=== PATIENT | male | born 2000 | race Caucasian/White ===

== ENCOUNTER 2022-09-24 16:19 | Emergency (ER) | payer OTHER ==
[2022-09-24] MEDS ORDERED: Sodium Chloride 0.9% 1,000 ML IV STA (17:49)
[2022-09-24] MEDS ORDERED: Ondansetron 4 MG/2 ML SDV IVPUSH ONE (17:54)
== END 2022-09-24 19:40 | disposition home or self-care (01) ==
LOC: JD.ED 16:19
DX: F10.10 Alcohol abuse, uncomplicated (principal); Y90.1 Blood alcohol level of 20-39 mg/100 ml
CPT/HCPCS: 36415; 80053; 80143; 80179; 80306; 80307; 84443; 85007; 85027; 93005; 96361; 96374; 99284; J2405; J7030; 93010; 99285

== ENCOUNTER 2023-07-16 15:30 | Emergency (ER) | payer OTHER ==
[2023-07-16] MEDS ORDERED: Propofol 200 MG/20 ML SDV IVPUSH ONE (16:18)
== END 2023-07-16 17:50 | disposition home or self-care (01) ==
LOC: JD.ED 15:30
DX: S43.025A Posterior dislocation of left humerus, initial encounter (principal); X50.1XXA Overexertion from prolonged static or awkward postures, initial encounter
CPT/HCPCS: 23650; 73030; 99283; J2704; 99152

== ENCOUNTER 2023-10-08 19:34 | Emergency (ER) | payer OTHER | END 2023-10-08 20:11 | disposition home or self-care (01) | LOC: JD.ED 19:34 | DX: F10.220 Alcohol dependence with intoxication, uncomplicated (principal) | CPT/HCPCS: 99283; 99284 ==

== ENCOUNTER 2024-01-06 16:20 | Emergency (ER) | payer OTHER ==
[2024-01-06 17:22] LABS: BASOPHILS ABSOLUTE AUTO 0.1 K/mm3 (0.0-0.2); BASOPHILS PERCENT AUTO 0.8 % (0.0-1.0); EOSINOPHILS ABSOLUTE AUTO 0.2 K/mm3 (0.0-0.4); EOSINOPHILS PERCENT AUTO 2.1 % (0.0-6.0); HEMATOCRIT 39.7 % (42.0-52.0); HEMOGLOBIN 13.4 gm/dl (14.0-18.0); IMMATURE GRAN ABSOLUTE AUTO 0.04 K/mm3 (0.00-0.05); IMMATURE GRAN PERCENT AUTO 0.5 % (0.0-0.4); LYMPHOCYTES PERCENT AUTO 25.9 % (24.0-44.0); MEAN CORPUSCULAR HEMOGLOBIN 30.4 pg (28.0-32.0); MEAN CORPUSCULAR HGB CONC 33.8 g/dl (32.0-36.0); MEAN PLATELET VOLUME 11.6 fl (9.4-12.4); MONOCYTES ABSOLUTE AUTO 0.9 K/mm3 (0.0-0.8); MONOCYTES PERCENT AUTO 11.4 % (0.0-8.0); NEUTROPHILS ABSOLUTE AUTO 4.5 K/mm3 (1.8-7.7); NEUTROPHILS PERCENT AUTO 59.3 % (41.0-71.0); PLATELET COUNT,PLT 118 K/mm3 (150-400); RED BLOOD CELL COUNT 4.41 M/mm3 (4.52-5.90); WHITE BLOOD CELL COUNT,WBC 7.62 K/mm3 (3.9-11.3)
[2024-01-06] MEDS: Thiamine 100 MG Tab PO ONE (17:53)
[2024-01-06] MEDS: Folic Acid 1 MG Tab PO ONE (17:53)
[2024-01-06] MEDS: LORazepam 1 MG Tab PO ONE (17:53)
[2024-01-06 17:56] LABS: A/G RATIO 1.1 (1-2); ALBUMIN 4.1 g/dl (3.4-5.0); ANION GAP 16.3 (5-15); BILIRUBIN TOTAL 0.6 mg/dL (0.2-1.0); BUN/CREATININE RATIO 15.5 (14-18); CALCIUM 9.7 mg/dL (8.5-10.1); CREATININE 1.1 mg/dL (0.7-1.3); EST CRCL DRUG DOSING (CG) 112.19 mL/min; POTASSIUM,K 3.3 mEq/L (3.5-5.1); PROTEIN TOTAL,TP 7.7 g/dl (6.4-8.2); TSH 1.882 uIU/mL (0.358-3.74)
[2024-01-06 18:27] LABS: AMPHETAMINES SCREEN, URINE NEGATIVE (CUTOFF=500); BARBITURATE SCREEN,URINE NEGATIVE (CUTOFF=200); BENZODIAZEPINES SCREEN,URINE NEGATIVE (CUTOFF=150); BUPRENORPHINE SCREEN,URINE NEGATIVE (CUTOFF=10); METHADONE SCREEN, URINE NEGATIVE (CUT0FF=200); METHAMPHETAMINES SCREEN, URINE NEGATIVE (CUTOFF=500); OXYCODONE SCREEN,URINE NEGATIVE (CUT0FF=100); THC SCREEN,URINE 20 NG/ML NEGATIVE (CUTOFF=50)
[2024-01-06] MEDS: Potassium Chloride 20 MEQ Tab.ER PO ONE (18:28)
== END 2024-01-06 18:56 | disposition home or self-care (01) ==
LOC: JD.ED 16:20
DX: F10.232 Alcohol dependence with withdrawal with perceptual disturbance (principal); R74.01 Elevation of levels of liver transaminase levels; Z79.899 Other long term (current) drug therapy; Y90.9 Presence of alcohol in blood, level not specified
CPT/HCPCS: 36415; 80053; 80143; 80179; 80306; 80307; 84443; 85025; 99284; A9270

== ENCOUNTER 2024-01-07 00:23 | Emergency (ER) | payer OTHER ==
[2024-01-07 00:58] LABS: APPEARANCE,URINE CLEAR (Clear); BILIRUBIN,URINE NEGATIVE (Negative); COLOR,URINE YELLOW (Yellow); GLUCOSE,URINE NEGATIVE (Negative); KETONES,URINE NEGATIVE (Negative); LEUKOCYTE ESTERASE,URINE NEGATIVE (Negative); NITRITE,URINE NEGATIVE (Negative); OCCULT BLOOD,URINE NEGATIVE (Negative); PH,URINE 8.5 (5.0-8.0); PROTEIN,URINE TRACE (Negative); UROBILINOGEN,URINE 0.2 (0.2-1.0)
[2024-01-07 01:04] LABS: BACTERIA,URINE FEW /hpf (FEW); EPITHELIAL CELLS,URINE NOT SEEN /hpf (0-5); MUCUS,URINE NOT SEEN /hpf (FEW); RBC,URINE NOT SEEN /hpf (0-5); WBC,URINE 0-5 /hpf (0-5)
[2024-01-07 01:05] LABS: AMORPHOUS SEDIMENT,URINE MODERATE /hpf (NOT SEEN)
[2024-01-07 01:07] LABS: BASOPHILS ABSOLUTE AUTO 0.1 K/mm3 (0.0-0.2); BASOPHILS PERCENT AUTO 0.7 % (0.0-1.0); EOSINOPHILS ABSOLUTE AUTO 0.2 K/mm3 (0.0-0.4); EOSINOPHILS PERCENT AUTO 2.8 % (0.0-6.0); HEMATOCRIT 40.2 % (42.0-52.0); HEMOGLOBIN 13.7 gm/dl (14.0-18.0); IMMATURE GRAN ABSOLUTE AUTO 0.02 K/mm3 (0.00-0.05); IMMATURE GRAN PERCENT AUTO 0.3 % (0.0-0.4); LYMPHOCYTES ABSOLUTE AUTO 1.7 K/mm3 (1.0-4.8); LYMPHOCYTES PERCENT AUTO 24.3 % (24.0-44.0); MEAN CORPUSCULAR HEMOGLOBIN 30.9 pg (28.0-32.0); MEAN CORPUSCULAR HGB CONC 34.1 g/dl (32.0-36.0); MEAN CORPUSCULAR VOLUME 90.7 fl (83.0-99.0); MEAN PLATELET VOLUME 11.4 fl (9.4-12.4); MONOCYTES ABSOLUTE AUTO 0.8 K/mm3 (0.0-0.8); MONOCYTES PERCENT AUTO 11.6 % (0.0-8.0); NEUTROPHILS ABSOLUTE AUTO 4.1 K/mm3 (1.8-7.7); NEUTROPHILS PERCENT AUTO 60.3 % (41.0-71.0); PLATELET COUNT,PLT 119 K/mm3 (150-400); RED BLOOD CELL COUNT 4.43 M/mm3 (4.52-5.90)
[2024-01-07] MEDS: Sodium Chloride 0.9% 10 ML Syringe FLUSH PRN (01:10)
[2024-01-07 01:17] LABS: BENZODIAZEPINES SCREEN,URINE PRESUMPTIVE POSITIVE (CUTOFF=150)
[2024-01-07 01:18] LABS: AMPHETAMINES SCREEN, URINE NEGATIVE (CUTOFF=500); BARBITURATE SCREEN,URINE NEGATIVE (CUTOFF=200); BUPRENORPHINE SCREEN,URINE NEGATIVE (CUTOFF=10); METHADONE SCREEN, URINE NEGATIVE (CUT0FF=200); METHAMPHETAMINES SCREEN, URINE NEGATIVE (CUTOFF=500); OXYCODONE SCREEN,URINE NEGATIVE (CUT0FF=100); THC SCREEN,URINE 20 NG/ML NEGATIVE (CUTOFF=50)
[2024-01-07 01:41] LABS: A/G RATIO 1.1 (1-2); ALBUMIN 4.1 g/dl (3.4-5.0); ANION GAP 13.7 (5-15); BILIRUBIN TOTAL 0.4 mg/dL (0.2-1.0); BUN/CREATININE RATIO 14.5 (14-18); CALCIUM 9.5 mg/dL (8.5-10.1); CREATININE 1.1 mg/dL (0.7-1.3); EST CRCL DRUG DOSING (CG) 119.04 mL/min; PROTEIN TOTAL,TP 7.7 g/dl (6.4-8.2); TSH 1.655 uIU/mL (0.358-3.74)
[2024-01-07 01:44] LABS: POTASSIUM,K 3.7 mEq/L (3.5-5.1)
[2024-01-07 01:59] LABS: CORONAVIRUS COVID-19 NAA NEGATIVE (NEGATIVE); INFLUENZA A NAA NEGATIVE (NEGATIVE); RESPIRATORY SYNCYTIAL VIR NAA NEGATIVE (NEGATIVE)
== END 2024-01-07 11:52 | disposition home or self-care (01) ==
LOC: JD.ED 00:23
DX: F10.139 Alcohol abuse with withdrawal, unspecified (principal); F17.210 Nicotine dependence, cigarettes, uncomplicated
CPT/HCPCS: 0241U; 36415; 80053; 80143; 80179; 80306; 80307; 81001; 83735; 84443; 85025; 99284; J3490; 99283

== ENCOUNTER 2024-01-24 14:34 | Emergency (ER) | payer OTHER ==
[2024-01-24] MEDS: Sodium Chloride 0.9% 2,000 ML IV SCH (15:37)
[2024-01-24] MEDS: Sodium Chloride 0.9% 10 ML Syringe FLUSH PRN (15:39)
[2024-01-24] MEDS: Thiamine 100 MG Tab PO ONE (15:40)
[2024-01-24] MEDS: Folic Acid 1 MG Tab PO ONE (15:40)
[2024-01-24 16:05] LABS: BASOPHILS PERCENT AUTO 0.8 % (0.0-1.0); EOSINOPHILS ABSOLUTE AUTO 0.1 K/mm3 (0.0-0.4); EOSINOPHILS PERCENT AUTO 2.4 % (0.0-6.0); HEMATOCRIT 51.7 % (42.0-52.0); IMMATURE GRAN ABSOLUTE AUTO 0.03 K/mm3 (0.00-0.05); IMMATURE GRAN PERCENT AUTO 0.6 % (0.0-0.4); LYMPHOCYTES ABSOLUTE AUTO 2.7 K/mm3 (1.0-4.8); LYMPHOCYTES PERCENT AUTO 52.8 % (24.0-44.0); MEAN CORPUSCULAR HEMOGLOBIN 30.4 pg (28.0-32.0); MEAN CORPUSCULAR HGB CONC 32.9 g/dl (32.0-36.0); MEAN CORPUSCULAR VOLUME 92.3 fl (83.0-99.0); MEAN PLATELET VOLUME 11.1 fl (9.4-12.4); MONOCYTES ABSOLUTE AUTO 0.3 K/mm3 (0.0-0.8); MONOCYTES PERCENT AUTO 5.2 % (0.0-8.0); NEUTROPHILS ABSOLUTE AUTO 1.9 K/mm3 (1.8-7.7); NEUTROPHILS PERCENT AUTO 38.2 % (41.0-71.0); PLATELET COUNT,PLT 423 K/mm3 (150-400); WHITE BLOOD CELL COUNT,WBC 5.04 K/mm3 (3.9-11.3)
[2024-01-24 16:32] LABS: A/G RATIO 1.2 (1-2); ALBUMIN 4.7 g/dl (3.4-5.0); ANION GAP 16.1 (5-15); BILIRUBIN TOTAL 0.2 mg/dL (0.2-1.0); BUN/CREATININE RATIO 10.8 (14-18); CALCIUM 8.8 mg/dL (8.5-10.1); CREATININE 1.3 mg/dL (0.7-1.3); EST CRCL DRUG DOSING (CG) 97.83 mL/min; ETHANOL BLOOD MEDICAL 0.35 gm% (0.00); POTASSIUM,K 4.1 mEq/L (3.5-5.1); PROTEIN TOTAL,TP 8.6 g/dl (6.4-8.2); TSH 0.655 uIU/mL (0.358-3.74)
== END 2024-01-25 02:31 | disposition home or self-care (01) ==
LOC: JD.ED 14:34
DX: F10.129 Alcohol abuse with intoxication, unspecified (principal)
CPT/HCPCS: 36415; 80053; 80179; 80307; 84443; 85025; 96360; 96361; 99284; A9270; J3490; J7030; 99283

== ENCOUNTER 2024-02-15 22:18 | Emergency (ER) | payer OTHER | END 2024-02-16 00:18 | LOC: JD.ED 22:18 | DX: F10.920 Alcohol use, unspecified with intoxication, uncomplicated (principal); F17.210 Nicotine dependence, cigarettes, uncomplicated | CPT/HCPCS: 99282; 99283 ==

== ENCOUNTER 2024-02-24 06:40 | Emergency (ER) | payer OTHER ==
[2024-02-24 07:02] LABS: BASOPHILS ABSOLUTE AUTO 0.1 K/mm3 (0.0-0.2); BASOPHILS PERCENT AUTO 0.7 % (0.0-1.0); EOSINOPHILS ABSOLUTE AUTO 0.4 K/mm3 (0.0-0.4); EOSINOPHILS PERCENT AUTO 5.2 % (0.0-6.0); HEMATOCRIT 40.8 % (42.0-52.0); IMMATURE GRAN ABSOLUTE AUTO 0.04 K/mm3 (0.00-0.05); IMMATURE GRAN PERCENT AUTO 0.6 % (0.0-0.4); LYMPHOCYTES ABSOLUTE AUTO 1.8 K/mm3 (1.0-4.8); LYMPHOCYTES PERCENT AUTO 26.7 % (24.0-44.0); MEAN CORPUSCULAR HEMOGLOBIN 30.3 pg (28.0-32.0); MEAN CORPUSCULAR HGB CONC 33.6 g/dl (32.0-36.0); MEAN CORPUSCULAR VOLUME 90.3 fl (83.0-99.0); MEAN PLATELET VOLUME 11.2 fl (9.4-12.4); MONOCYTES ABSOLUTE AUTO 0.4 K/mm3 (0.0-0.8); MONOCYTES PERCENT AUTO 5.6 % (0.0-8.0); NEUTROPHILS ABSOLUTE AUTO 4.1 K/mm3 (1.8-7.7); NEUTROPHILS PERCENT AUTO 61.2 % (41.0-71.0); RED BLOOD CELL COUNT 4.52 M/mm3 (4.52-5.90); WHITE BLOOD CELL COUNT,WBC 6.75 K/mm3 (3.9-11.3)
[2024-02-24 07:03] LABS: HEMOGLOBIN 13.7 gm/dl (14.0-18.0); PLATELET COUNT,PLT 184 K/mm3 (150-400)
[2024-02-24 07:23] LABS: A/G RATIO 1.2 (1-2); ALBUMIN 3.9 g/dl (3.4-5.0); ANION GAP 21.5 (5-15); BILIRUBIN TOTAL 0.5 mg/dL (0.2-1.0); BUN/CREATININE RATIO 9.3 (14-18); CALCIUM 9.1 mg/dL (8.5-10.1); CREATININE 1.4 mg/dL (0.7-1.3); EST CRCL DRUG DOSING (CG) 90.84 mL/min; MAGNESIUM 2.3 mg/dL (1.8-2.4); POTASSIUM,K 3.5 mEq/L (3.5-5.1); PROTEIN TOTAL,TP 7.2 g/dl (6.4-8.2)
[2024-02-24] MEDS: LORazepam 2 MG/ML SDV IVPUSH ONE (08:10)
[2024-02-24] MEDS: Dextrose 5%-0.9% NaCl 1,000 ML IV SCH (08:10)
[2024-02-24] MEDS: levETIRAcetam 500 MG/5 ML SDV IVPUSH ONE (08:13)
[2024-02-24] MEDS: Sodium Chloride 0.9% 10 ML Syringe FLUSH PRN (08:21)
[2024-02-24] MEDS ORDERED: Dextrose 5%-Lactated Ringers 1,000 ML IV SCH (10:30)
[2024-02-24 16:56] LABS: BARBITURATE SCREEN,URINE NEGATIVE (CUTOFF=200); BENZODIAZEPINES SCREEN,URINE NEGATIVE (CUTOFF=150); METHADONE SCREEN, URINE NEGATIVE (CUT0FF=200); METHAMPHETAMINES SCREEN, URINE NEGATIVE (CUTOFF=500); OXYCODONE SCREEN,URINE NEGATIVE (CUT0FF=100); THC SCREEN,URINE 20 NG/ML NEGATIVE (CUTOFF=50)
[2024-02-24 16:57] LABS: AMPHETAMINES SCREEN, URINE NEGATIVE (CUTOFF=500); BUPRENORPHINE SCREEN,URINE NEGATIVE (CUTOFF=10)
[2024-02-24 17:06] LABS: APPEARANCE,URINE CLEAR (Clear); BILIRUBIN,URINE NEGATIVE (Negative); COLOR,URINE YELLOW (Yellow); GLUCOSE,URINE NEGATIVE (Negative); KETONES,URINE NEGATIVE (Negative); LEUKOCYTE ESTERASE,URINE NEGATIVE (Negative); NITRITE,URINE NEGATIVE (Negative); OCCULT BLOOD,URINE TRACE-LYSED (Negative); PROTEIN,URINE TRACE (Negative); UROBILINOGEN,URINE 0.2 (0.2-1.0)
[2024-02-24 17:31] LABS: BACTERIA,URINE OCCASIONAL /hpf (FEW); MUCUS,URINE NOT SEEN /hpf (FEW); RBC,URINE 0-5 /hpf (0-5); SQUAMOUS EPITHELIAL CELLS,UR NOT SEEN /hpf (0-5); WBC,URINE 0-5 /hpf (0-5)
== END 2024-02-24 17:14 | disposition home or self-care (01) ==
LOC: JD.ED 06:40
DX: F10.139 Alcohol abuse with withdrawal, unspecified (principal); R56.9 Unspecified convulsions
CPT/HCPCS: 36415; 80053; 80306; 80307; 81001; 83690; 83735; 85025; J1953; J2060; J3490; J7042; 96361; 96374; 96375; 99285-25

== ENCOUNTER 2024-02-26 21:46 | Emergency (ER) | payer OTHER ==
[2024-02-26] MEDS: Sodium Chloride 0.9% 1,000 ML IV STA (22:24)
[2024-02-26 22:40] LABS: HEMATOCRIT 47.5 % (42.0-52.0); HEMOGLOBIN 15.9 gm/dl (14.0-18.0); MEAN CORPUSCULAR HEMOGLOBIN 29.7 pg (28.0-32.0); MEAN CORPUSCULAR HGB CONC 33.5 g/dl (32.0-36.0); MEAN CORPUSCULAR VOLUME 88.6 fl (83.0-99.0); MEAN PLATELET VOLUME 11.4 fl (9.4-12.4); PLATELET COUNT,PLT 165 K/mm3 (150-400); RED BLOOD CELL COUNT 5.36 M/mm3 (4.52-5.90); WHITE BLOOD CELL COUNT,WBC 5.16 K/mm3 (3.9-11.3)
[2024-02-26 23:12] LABS: ALBUMIN 4.4 g/dl (3.4-5.0); ANION GAP 16.9 (5-15); BAND PERCENT MAN 0 % (0-10); BASOPHILS PERCENT MAN 0 (0.2-1.2); BILIRUBIN TOTAL 0.3 mg/dL (0.2-1.0); BUN/CREATININE RATIO 7.3 (14-18); CALCIUM 9.1 mg/dL (8.5-10.1); CREATININE 1.1 mg/dL (0.7-1.3); EOSINOPHILS PERCENT MAN 2 % (0.8-7.0); EST CRCL DRUG DOSING (CG) 119.04 mL/min; ETHANOL BLOOD MEDICAL 0.35 gm% (0.00); LYMPHOCYTES % ATYPICAL MANUAL 0 %; LYMPHOCYTES PERCENT MAN 48 % (20-40); MONOCYTES PERCENT MAN 0 % (2-10); POTASSIUM,K 3.9 mEq/L (3.5-5.1); PROTEIN TOTAL,TP 8.7 g/dl (6.4-8.2); TSH 0.906 uIU/mL (0.358-3.74)
[2024-02-26 23:13] LABS: PLATELET COUNT ESTIMATE ADEQUATE
== END 2024-02-27 02:27 | disposition left against medical advice (07) ==
LOC: JD.ED 21:46
DX: F10.129 Alcohol abuse with intoxication, unspecified (principal); Y90.1 Blood alcohol level of 20-39 mg/100 ml; Z79.899 Other long term (current) drug therapy; Z53.29 Procedure and treatment not carried out because of patient's decision for other reasons
CPT/HCPCS: 36415; 80053; 80143; 80179; 80307; 84443; 85007; 85027; 99283; 99284

== ENCOUNTER 2024-04-06 11:15 | Emergency (ER) | payer OTHER ==
[2024-04-06 12:03] LABS: BASOPHILS ABSOLUTE AUTO 0.1 K/mm3 (0.0-0.2); BASOPHILS PERCENT AUTO 0.9 % (0.0-1.0); EOSINOPHILS ABSOLUTE AUTO 0.1 K/mm3 (0.0-0.4); EOSINOPHILS PERCENT AUTO 0.9 % (0.0-6.0); HEMATOCRIT 45.7 % (42.0-52.0); HEMOGLOBIN 15.3 gm/dl (14.0-18.0); IMMATURE GRAN ABSOLUTE AUTO 0.04 K/mm3 (0.00-0.05); IMMATURE GRAN PERCENT AUTO 0.6 % (0.0-0.4); LYMPHOCYTES ABSOLUTE AUTO 2.7 K/mm3 (1.0-4.8); LYMPHOCYTES PERCENT AUTO 41.3 % (24.0-44.0); MEAN CORPUSCULAR HGB CONC 33.5 g/dl (32.0-36.0); MEAN CORPUSCULAR VOLUME 89.6 fl (83.0-99.0); MEAN PLATELET VOLUME 10.6 fl (9.4-12.4); MONOCYTES ABSOLUTE AUTO 0.5 K/mm3 (0.0-0.8); MONOCYTES PERCENT AUTO 7.7 % (0.0-8.0); NEUTROPHILS ABSOLUTE AUTO 3.2 K/mm3 (1.8-7.7); NEUTROPHILS PERCENT AUTO 48.6 % (41.0-71.0); WHITE BLOOD CELL COUNT,WBC 6.51 K/mm3 (3.9-11.3)
[2024-04-06 12:06] LABS: PLATELET COUNT,PLT 269 K/mm3 (150-400)
[2024-04-06] MEDS: Lactated Ringers 1,000 ML IV ONE ×2 (12:13→14:05)
[2024-04-06 12:30] LABS: A/G RATIO 1.3 (1-2); ALANINE AMINOTRANSFERASE,ALT 64 U/L (16-63); ALBUMIN 4.3 g/dl (3.4-5.0); ALKALINE PHOSPHATASE 85 U/L (46-116); ANION GAP 19.8 (5-15); ASPARTATE AMNIOTRANSFERASE,AST 51 U/L (15-37); BILIRUBIN TOTAL 0.4 mg/dL (0.2-1.0); BLOOD UREA NITROGEN,BUN 12 mg/dL (7-18); CALCIUM 8.6 mg/dL (8.5-10.1); CARBON DIOXIDE,CO2 26 mEq/L (21-32); CHLORIDE,CL 101 mEq/L (98-107); ESTIMATED GFR 109 mL/min (>60); ETHANOL BLOOD MEDICAL 0.43 gm% (0.00); GLUCOSE RANDOM 82 mg/dL (70-99); POTASSIUM,K 3.8 mEq/L (3.5-5.1); PROTEIN TOTAL,TP 7.7 g/dl (6.4-8.2); SODIUM,NA 143 mEq/L (136-145)
[2024-04-06] MEDS: Sodium Chloride 0.9% 1,000 ML IV SCH (15:19)
== END 2024-04-06 16:45 | disposition home or self-care (01) ==
LOC: JD.ED 11:15
DX: F10.920 Alcohol use, unspecified with intoxication, uncomplicated (principal); R74.01 Elevation of levels of liver transaminase levels; Z79.899 Other long term (current) drug therapy
CPT/HCPCS: 36415; 80053; 80307; 85025; 96360; 96361; 99284; J7030; J7120; 99283

== ENCOUNTER 2024-04-15 13:00 | Inpatient (IN) | payer OTHER ==
[2024-04-15 13:29] LABS: BASOPHILS PERCENT AUTO 0.3 % (0.0-1.0); EOSINOPHILS ABSOLUTE AUTO 0.2 K/mm3 (0.0-0.4); EOSINOPHILS PERCENT AUTO 3.3 % (0.0-6.0); HEMATOCRIT 45.5 % (42.0-52.0); HEMOGLOBIN 15.1 gm/dl (14.0-18.0); IMMATURE GRAN ABSOLUTE AUTO 0.07 K/mm3 (0.00-0.05); LYMPHOCYTES ABSOLUTE AUTO 1.5 K/mm3 (1.0-4.8); LYMPHOCYTES PERCENT AUTO 21.1 % (24.0-44.0); MEAN CORPUSCULAR HEMOGLOBIN 29.6 pg (28.0-32.0); MEAN CORPUSCULAR HGB CONC 33.2 g/dl (32.0-36.0); MEAN CORPUSCULAR VOLUME 89.2 fl (83.0-99.0); MEAN PLATELET VOLUME 11.3 fl (9.4-12.4); MONOCYTES ABSOLUTE AUTO 0.4 K/mm3 (0.0-0.8); NEUTROPHILS ABSOLUTE AUTO 4.9 K/mm3 (1.8-7.7); NEUTROPHILS PERCENT AUTO 68.3 % (41.0-71.0); PLATELET COUNT,PLT 168 K/mm3 (150-400); WHITE BLOOD CELL COUNT,WBC 7.21 K/mm3 (3.9-11.3)
[2024-04-15] MEDS: LORazepam 2 MG/ML SDV IVPUSH ONE (13:36)
[2024-04-15] MEDS: Sodium Chloride 0.9% 1,000 ML IV ONE (13:36)
[2024-04-15] MEDS: Sodium Chloride 0.9% 10 ML Syringe FLUSH PRN (13:37)
[2024-04-15 13:59] LABS: A/G RATIO 1.2 (1-2); ALBUMIN 4.3 g/dl (3.4-5.0); ANION GAP 15.2 (5-15); BILIRUBIN TOTAL 0.4 mg/dL (0.2-1.0); BUN/CREATININE RATIO 9.2 (14-18); CALCIUM 9.7 mg/dL (8.5-10.1); CREATININE 1.2 mg/dL (0.7-1.3); EST CRCL DRUG DOSING (CG) 109.12 mL/min; POTASSIUM,K 4.2 mEq/L (3.5-5.1); PROTEIN TOTAL,TP 7.9 g/dl (6.4-8.2); TSH 0.934 uIU/mL (0.358-3.74)
[2024-04-15] MEDS ORDERED: levETIRAcetam 2,000 MG in Sodium Chloride 0.9% 100 ML IV ONE (14:39)
[2024-04-15] MEDS: levETIRAcetam 2,000 MG in Sodium Chloride 0.9% 100 ML IV ONE (15:01)
[2024-04-15 15:22] LABS: BARBITURATE SCREEN,URINE NEGATIVE (CUTOFF=200); BENZODIAZEPINES SCREEN,URINE NEGATIVE (CUTOFF=150); BUPRENORPHINE SCREEN,URINE NEGATIVE (CUTOFF=10); METHADONE SCREEN, URINE NEGATIVE (CUT0FF=200); METHAMPHETAMINES SCREEN, URINE NEGATIVE (CUTOFF=500); OXYCODONE SCREEN,URINE NEGATIVE (CUT0FF=100); THC SCREEN,URINE 20 NG/ML NEGATIVE (CUTOFF=50)
[2024-04-15 15:32] LABS: AMPHETAMINES SCREEN, URINE NEGATIVE (CUTOFF=500)
[2024-04-15] MEDS ORDERED: LORazepam 2 MG/ML SDV IV PRN (16:57)
[2024-04-15] MEDS ORDERED: Acetaminophen 325 MG Tab PO PRN (16:57)
[2024-04-15] MEDS: Sodium Chloride 0.9% 1,000 ML IV SCH (17:25)
[2024-04-16 04:54] LABS: HEMATOCRIT 39.3 % (42.0-52.0); HEMOGLOBIN 13.1 gm/dl (14.0-18.0); MEAN CORPUSCULAR HGB CONC 33.3 g/dl (32.0-36.0); MEAN CORPUSCULAR VOLUME 89.9 fl (83.0-99.0); MEAN PLATELET VOLUME 12.1 fl (9.4-12.4); PLATELET COUNT,PLT 139 K/mm3 (150-400); RED BLOOD CELL COUNT 4.37 M/mm3 (4.52-5.90); WHITE BLOOD CELL COUNT,WBC 6.49 K/mm3 (3.9-11.3)
[2024-04-16 05:21] LABS: A/G RATIO 1.1 (1-2); ALBUMIN 3.4 g/dl (3.4-5.0); ANION GAP 12.4 (5-15); BILIRUBIN TOTAL 0.5 mg/dL (0.2-1.0); CALCIUM 8.3 mg/dL (8.5-10.1); EST CRCL DRUG DOSING (CG) 130.95 mL/min; POTASSIUM,K 3.4 mEq/L (3.5-5.1); PROTEIN TOTAL,TP 6.4 g/dl (6.4-8.2)
[2024-04-16] MEDS: Potassium Chloride 20 MEQ Tab.ER PO SCH (08:10)
[2024-04-16] MEDS: levETIRAcetam 500 MG Tab PO SCH (08:10)
[2024-04-16] MEDS: Enoxaparin 40 MG/0.4 ML Syringe SUBCUT SCH (08:10)
== END 2024-04-16 14:17 | disposition home or self-care (01) | DRG 897 ==
LOC: JD.ED 13:00 → JD.MS 15:55 → OBSVTOIN 16:57
PROVIDERS: ADMIT Internal Medicine; ATTEND Internal Medicine
DX: F10.930 Alcohol use, unspecified with withdrawal, uncomplicated (principal); G40.89 Other seizures; G40.909 Epilepsy, unspecified, not intractable, without status epilepticus; F41.9 Anxiety disorder, unspecified; R40.0 Somnolence; F17.210 Nicotine dependence, cigarettes, uncomplicated; Z98.890 Other specified postprocedural states; Z79.899 Other long term (current) drug therapy
CPT/HCPCS: 36415; 70450; 70450-26; 80053; 80143; 80179; 80306; 80307; 84443; 85025; 85027; 99284; A9270-GY; J1650; J1953; J2060; J3490; J7030

== ENCOUNTER 2024-04-16 20:24 | Emergency (ER) | payer OTHER | END 2024-04-16 21:25 | disposition left against medical advice (07) | LOC: JD.ED 20:24 | DX: F10.120 Alcohol abuse with intoxication, uncomplicated (principal); Z79.899 Other long term (current) drug therapy | CPT/HCPCS: 99282; 99285 ==

== ENCOUNTER 2024-04-17 15:43 | Emergency (ER) | payer OTHER ==
[2024-04-17] MEDS ORDERED: Dextrose 5%-Lactated Ringers 1,000 ML IV SCH (17:00)
[2024-04-17 17:23] LABS: BASOPHILS PERCENT AUTO 0.5 % (0.0-1.0); EOSINOPHILS ABSOLUTE AUTO 0.1 K/mm3 (0.0-0.4); EOSINOPHILS PERCENT AUTO 1.2 % (0.0-6.0); HEMOGLOBIN 15.1 gm/dl (14.0-18.0); IMMATURE GRAN ABSOLUTE AUTO 0.03 K/mm3 (0.00-0.05); IMMATURE GRAN PERCENT AUTO 0.4 % (0.0-0.4); LYMPHOCYTES ABSOLUTE AUTO 2.8 K/mm3 (1.0-4.8); LYMPHOCYTES PERCENT AUTO 38.2 % (24.0-44.0); MEAN CORPUSCULAR HEMOGLOBIN 29.7 pg (28.0-32.0); MEAN CORPUSCULAR HGB CONC 32.8 g/dl (32.0-36.0); MEAN CORPUSCULAR VOLUME 90.6 fl (83.0-99.0); MEAN PLATELET VOLUME 11.2 fl (9.4-12.4); MONOCYTES ABSOLUTE AUTO 0.5 K/mm3 (0.0-0.8); MONOCYTES PERCENT AUTO 6.2 % (0.0-8.0); NEUTROPHILS ABSOLUTE AUTO 3.9 K/mm3 (1.8-7.7); NEUTROPHILS PERCENT AUTO 53.5 % (41.0-71.0); PLATELET COUNT,PLT 192 K/mm3 (150-400); RED BLOOD CELL COUNT 5.08 M/mm3 (4.52-5.90); WHITE BLOOD CELL COUNT,WBC 7.28 K/mm3 (3.9-11.3)
[2024-04-17 17:48] LABS: A/G RATIO 1.2 (1-2); ALBUMIN 4.4 g/dl (3.4-5.0); ANION GAP 17.8 (5-15); BILIRUBIN TOTAL 0.3 mg/dL (0.2-1.0); BUN/CREATININE RATIO 7.3 (14-18); C-REACTIVE PROTEIN 0.37 mg/dL (<0.30); CALCIUM 8.8 mg/dL (8.5-10.1); CREATININE 1.1 mg/dL (0.7-1.3); EST CRCL DRUG DOSING (CG) 119.04 mL/min; ETHANOL BLOOD MEDICAL 0.33 gm% (0.00); MAGNESIUM 1.8 mg/dL (1.8-2.4); POTASSIUM,K 3.8 mEq/L (3.5-5.1); PROTEIN TOTAL,TP 8.2 g/dl (6.4-8.2)
[2024-04-17 17:56] LABS: LACTIC ACID 1.9 mmol/L (0.4-2.0)
[2024-04-17] MEDS: levETIRAcetam 500 MG Tab PO ONE (18:11)
[2024-04-17] MEDS: Thiamine 100 MG in Sodium Chloride 0.9% 100 ML IV ONE (18:11)
[2024-04-17] MEDS: Metoclopramide 10 MG/2 ML SDV IVPUSH ONE (18:11)
[2024-04-17] MEDS: Nicotine Polacrilex 2 MG Gum CHEW ONE (18:12)
== END 2024-04-17 18:20 | disposition left against medical advice (07) ==
LOC: JD.ED 15:43
DX: F10.229 Alcohol dependence with intoxication, unspecified (principal); Z79.899 Other long term (current) drug therapy
CPT/HCPCS: 36415; 80053; 80307; 83605; 83690; 83735; 83880; 85025; 86140; 99284; A9270

== ENCOUNTER 2024-04-22 09:32 | Emergency (ER) | payer OTHER ==
[2024-04-22 10:17] LABS: BASOPHILS PERCENT AUTO 0.6 % (0.0-1.0); EOSINOPHILS ABSOLUTE AUTO 0.2 K/mm3 (0.0-0.4); EOSINOPHILS PERCENT AUTO 2.8 % (0.0-6.0); HEMATOCRIT 43.8 % (42.0-52.0); HEMOGLOBIN 14.7 gm/dl (14.0-18.0); IMMATURE GRAN ABSOLUTE AUTO 0.03 K/mm3 (0.00-0.05); IMMATURE GRAN PERCENT AUTO 0.5 % (0.0-0.4); LYMPHOCYTES ABSOLUTE AUTO 2.9 K/mm3 (1.0-4.8); MEAN CORPUSCULAR HEMOGLOBIN 29.8 pg (28.0-32.0); MEAN CORPUSCULAR HGB CONC 33.6 g/dl (32.0-36.0); MEAN CORPUSCULAR VOLUME 88.8 fl (83.0-99.0); MEAN PLATELET VOLUME 10.6 fl (9.4-12.4); MONOCYTES ABSOLUTE AUTO 0.8 K/mm3 (0.0-0.8); MONOCYTES PERCENT AUTO 13.1 % (0.0-8.0); NEUTROPHILS ABSOLUTE AUTO 2.4 K/mm3 (1.8-7.7); PLATELET COUNT,PLT 289 K/mm3 (150-400); RED BLOOD CELL COUNT 4.93 M/mm3 (4.52-5.90); WHITE BLOOD CELL COUNT,WBC 6.35 K/mm3 (3.9-11.3)
[2024-04-22 10:37] LABS: APPEARANCE,URINE CLEAR (Clear); BILIRUBIN,URINE NEGATIVE (Negative); COLOR,URINE YELLOW (Yellow); GLUCOSE,URINE NEGATIVE (Negative); KETONES,URINE TRACE (Negative); LEUKOCYTE ESTERASE,URINE NEGATIVE (Negative); NITRITE,URINE NEGATIVE (Negative); OCCULT BLOOD,URINE NEGATIVE (Negative); PROTEIN,URINE NEGATIVE (Negative); UROBILINOGEN,URINE 0.2 (0.2-1.0)
[2024-04-22 10:44] LABS: A/G RATIO 1.2 (1-2); ALBUMIN 4.1 g/dl (3.4-5.0); ANION GAP 17.8 (5-15); BARBITURATE SCREEN,URINE NEGATIVE (CUTOFF=200); BENZODIAZEPINES SCREEN,URINE NEGATIVE (CUTOFF=150); BILIRUBIN TOTAL 0.2 mg/dL (0.2-1.0); BUN/CREATININE RATIO 14.4 (14-18); BUPRENORPHINE SCREEN,URINE NEGATIVE (CUTOFF=10); CALCIUM 9.2 mg/dL (8.5-10.1); CREATININE 0.9 mg/dL (0.7-1.3); EST CRCL DRUG DOSING (CG) 145.5 mL/min; ETHANOL BLOOD MEDICAL 0.06 gm% (0.00); METHADONE SCREEN, URINE NEGATIVE (CUT0FF=200); METHAMPHETAMINES SCREEN, URINE NEGATIVE (CUTOFF=500); OXYCODONE SCREEN,URINE NEGATIVE (CUT0FF=100); POTASSIUM,K 3.8 mEq/L (3.5-5.1); PROTEIN TOTAL,TP 7.6 g/dl (6.4-8.2); THC SCREEN,URINE 20 NG/ML NEGATIVE (CUTOFF=50); TSH 0.95 uIU/mL (0.358-3.74)
[2024-04-22 10:57] LABS: AMPHETAMINES SCREEN, URINE NEGATIVE (CUTOFF=500)
== END 2024-04-22 13:15 | disposition home or self-care (01) ==
LOC: JD.ED 09:32
DX: F10.90 Alcohol use, unspecified, uncomplicated (principal); Z79.899 Other long term (current) drug therapy
CPT/HCPCS: 36415; 80053; 80143; 80179; 80306; 80307; 81003; 84443; 85025; 93005; 93010; 99283